=== PATIENT | female | born 1985 | race African-American/Black ===

== ENCOUNTER 2016-10-28 15:41 | Inpatient (IN) | payer OTHER ==
[~2016-10-28] VITALS: Ht 167.6 cm; Wt 108.0 kg
[~2016-10-28 15:41] MED LIST: DICLEGIS DR 101 EACH PO; TERAZOL 745 GM VG; VITAFOL-ONE CA1 EACH PO; ZOFRAN4 M2 PO
[2016-10-28 16:23] LABS: ABSOLUTE BASOPHIL COUNT 0 /CUMM (0.0-0.2); ABSOLUTE EOSINOPHIL COUNT 0.1 /CUMM (0.0-0.7); ABSOLUTE GRANULOCYTE CT 5.7 /CUMM (1.4-6.5); ABSOLUTE LYMPH COUNT 0.9 /CUMM (1.2-3.4); ABSOLUTE MONOCYTE COUNT 0.5 /CUMM (0.10-0.60); BASOPHIL % 0.4 % (0.0-2.0); EOSINOPHIL % 1.3 % (0-5); GRANULOCYTE % 79.3 % (42.2-75.2); HEMATOCRIT 34.9 % (37-47); MEAN CORPUSCULAR HGB 27.5 PG (27.0-31.0); MEAN CORPUSCULAR HGB CONC 32.7 G/DL (33.0-37.0); MEAN CORPUSCULAR VOLUME 84.1 FL (81.0-99.0); MEAN PLATELET VOLUME 7.7 FL (7.4-10.4); PLATELET COUNT 191 /CUMM (130-400); RBC DISTRIBUTION WIDTH 15.2 % (11.5-14.5); RED BLOOD CELL CT 4.15 /CUMM (4.20-5.40); WHITE BLOOD CELL COUNT 7.2 /CUMM (4.8-10.8)
[2016-12-22 06:08] LABS: ABSOLUTE BASOPHIL COUNT 0 /CUMM (0.0-0.2); ABSOLUTE EOSINOPHIL COUNT 0.2 /CUMM (0.0-0.7); ABSOLUTE GRANULOCYTE CT 5.3 /CUMM (1.4-6.5); ABSOLUTE LYMPH COUNT 1.5 /CUMM (1.2-3.4); ABSOLUTE MONOCYTE COUNT 0.7 /CUMM (0.10-0.60); BASOPHIL % 0.1 % (0.0-2.0); EOSINOPHIL % 2.4 % (0-5); HEMATOCRIT 36.5 % (37-47); MEAN CORPUSCULAR HGB 25.4 PG (27.0-31.0); MEAN CORPUSCULAR HGB CONC 31.8 G/DL (33.0-37.0); MEAN CORPUSCULAR VOLUME 79.7 FL (81.0-99.0); PLATELET COUNT 201 /CUMM (130-400); RBC DISTRIBUTION WIDTH 17.9 % (11.5-14.5); RED BLOOD CELL CT 4.58 /CUMM (4.20-5.40); WHITE BLOOD CELL COUNT 7.7 /CUMM (4.8-10.8)
[2016-12-22 06:52] VITALS: BP 119/59
--- NOTE | 2016-12-22 07:18 | History & Physical ---
General Information and HPI MD Statement: I have seen and personally examined HARI GAYLE and documented this H&P. The patient is a 31 year old female at [40] weeks gestation who presented with a chief complaint of [LABOR PAINS]. Source of Information: patient, old records Exam Limitations: no limitations History of Present Illness: HAS BEEN HAVING LABOR PAINS FOR A FEW HOURS Allergies/Medications Allergies: Coded Allergies: No Known Allergies (05/20/16) Home Med list Doxylamine/Pyridoxine HCl (Diclegis Dr 10-10 MG Tablet) 1 EACH TABLET.DR 1 TAB PO PRN N/V (Reported) Ondansetron HCl (Zofran) 4 MG TABLET 1 TAB PO Q6-8P PRN NAUSEA Pnv#26/Iron Poly/FA/Dha (Vitafol-One Capsule) 1 EACH CAPSULE 1 CAP PO DAILY (Reported) Terconazole (Terazol 7) 45 GM CREAM.APPL 1 A VG QPM YEAST INFECTION (Reported ) Compliance With Home Meds: GOOD Past History systems auditor History : 4 Para: 3 Last Menstrual Period: Estimated Delivery Date: 12/20/2016 Past systems auditor History: none Past Pregnancies Past Pregnancies: 1 Date of Delivery: 11/08/2010 Gestational Age: 40 Length of Labor: 4 Weight: 8# Type of Delivery: vaginal Anesthesia: NONE Past Pregnancies: 2 Date of Delivery: 12/02/2018 Gestational Age: 39 Length of Labor: 5H Weight: 7# Type of Delivery: vaginal Anesthesia: NONE Past Pregnancies: 3 Date of Delivery: 04/14/2016 Gestational Age: 40 Length of Labor: 4H Weight: 2#12OZ Type of Delivery: vaginal Anesthesia: NONE Complications: NONE Medical History Neurological: NONE EENT: NONE Cardiovascular: NONE Respiratory: asthma Gastrointestinal: NONE Hepatic: NONE Renal: NONE Musculoskeletal: NONE Psychiatric: NONE Endocrine: NONE Blood Disorders: NONE Cancer(s): NONE Surgical History Pertinent Surgical History: non-contributory Past Family/Social History Psychosocial History Smoking Status: Never Smoked Review of Systems Review of Systems Constitutional: Reports: no symptoms. Denies: chills, fever. EENTM: Denies: blurred vision, double vision, visual changes. Cardiovascular: Denies: orthopena. Neurological/Psychological: Denies: anxiety, depressed. Exam & Diagnostic Data Last 24 Hrs of Vital Signs/I&O VSS Vital Signs Date Time Temp Pulse Resp B/P Pulse O2 O2 Flow FiO2 Ox Delivery Rate 12/22 0652 119/59 Intake & Output 12/22 0800 12/22 0000 12/21 1600 Intake Total Output Total Balance Patient 238 lb Weight Obstetric Exam Wgt Gained During : 58 Pelvimetry: ADEQUATE Dilation (cm): 9 Effacement (%): 90 Station: 0 Membranes: AROM Fluid: light meconium Fundal Height (cm): 40 Multiple Gestation? No Contractions: Q4MIN Patient for Induction? No Physical Exam General Appearance Alert, Oriented X3, Cooperative, Moderate Distress Skin No Rashes Cardiovascular Regular Rate Lungs Clear to Auscultation Abdomen Soft Labs Blood Type & Rh: o POS Antibody Screen: NEG Hct/Hgb & Platelets #1: 43/14.2/214 Hct/Hgb & Platelets #2: 37.5/11.5/204 Rubella: IMM VDRL #1: NR VDRL #2: NR HbsAg: NR HIV #1: NR HIV #2 NR 1 Hr P Group B Strep: POS Initial Ultrasound: 05/25/2016 10 WEEKS Anatomy Ultrasound: 07/27/2016 Genetic Testing: DECLINED Last 24 Hrs of Labs/Vikram: Laboratory Tests 12/22/16 0540: CBC w Diff NO MAN DIFF REQ, RBC 4.58, MCV 79.7 L, MCH 25.4 L, RDW 17.9 H, MPV 8.0, Gran % 69.0, Lymphocytes % 19.0 L, Monocytes % 9.5 H, Eosinophils % 2.4, Basophils % 0.1, Absolute Granulocytes 5.3, Absolute Lymphocytes 1.5, Absolute Monocytes 0.7 H, Absolute Eosinophils 0.2, Absolute Basophils 0, PUBS MCHC 31.8 L, Urine Color STRAW, Urine Clarity CLDY H, Urine pH 6.5, Ur Specific [place] 1.015, Urine Protein TRACE H, Urine Ketones NEG, Urine Nitrite NEG, Urine Bilirubin NEG, Urine Urobilinogen 0.2, Ur Leukocyte Esterase LARGE H, Ur Microscopic SEDIMENT EXAMINED, Urine RBC 10-15 H, Urine WBC 25-50 H, Ur Epithelial Cells MANY H, Urine Bacteria MANY H, Urine Mucus FEW, Urine Hemoglobin MOD H, Urine Glucose NEG Assessment/Plan Assessment/Plan: IUP @ TERM GBS POS PLAN ANTIBIOTICS As Ranked By This Provider Problem List: 1. Core Measures/Miscellaneous Venous Thromboembolism VTE Risk Factors: / VTE Contraindications: No Contraindications VTE Diagnosis: No Beta Janice Is Beta Janice a Home Med? No Antibiotics Is Patient on Antibiotics? No Attending MD Review Statement Attending Statement Attending MD Statement: examined this patient, discussed with family, discussed w/nursing
--- NOTE | 2016-12-22 10:06 | Labor & Delivery Summary ---
Delivery Summary Vaginal Delivery: Vaginal: Vertex spontaneous Placenta: Placenta: spontanteous, normal, 3 vessel Anesthesia: none Cord PH Value: N/A Baby's Weight: FEMALE 8#5oz Apgars - 1 Min: 9 Apgars - 5 Min: 9 Additional Comments: Precipitous delivery. Low segment atony PP - responded to manual extraction of clot in upper vagina, IV Pitocin, IM Methergine. Normal bleeding there after. EBL @ [address] Joseph did the delivery Sami Gardner MD
[2016-12-22] MEDS ORDERED: IBUPROFEN800 M1 PO (15:13)
[2016-12-23 08:21] LABS: ABSOLUTE BASOPHIL COUNT 0 /CUMM (0.0-0.2)
[2016-12-23 08:53] LABS: ABSOLUTE EOSINOPHIL COUNT 0.2 /CUMM (0.0-0.7); ABSOLUTE GRANULOCYTE CT 6.2 /CUMM (1.4-6.5); ABSOLUTE LYMPH COUNT 1.8 /CUMM (1.2-3.4); ABSOLUTE MONOCYTE COUNT 0.7 /CUMM (0.10-0.60); BASOPHIL % 0 % (0.0-2.0); EOSINOPHIL % 2.4 % (0-5); GRANULOCYTE % 69.6 % (42.2-75.2); MEAN CORPUSCULAR HGB 25.7 PG (27.0-31.0); MEAN CORPUSCULAR HGB CONC 31.9 G/DL (33.0-37.0); MEAN CORPUSCULAR VOLUME 80.5 FL (81.0-99.0); MEAN PLATELET VOLUME 8.2 FL (7.4-10.4); PLATELET COUNT 195 /CUMM (130-400); RBC DISTRIBUTION WIDTH 18.5 % (11.5-14.5); RED BLOOD CELL CT 3.91 /CUMM (4.20-5.40); WHITE BLOOD CELL COUNT 8.9 /CUMM (4.8-10.8)
[2016-12-23 08:59] LABS: HEMATOCRIT 31.5 % (37-47)
--- NOTE | 2016-12-23 09:58 | PN- OBGYN ---
Surgical Brief Attending Note Brief Attending Note: 31 year old para 4. s/p yesterday. PPD1. Doing well. Desires BTL. Wants to defer early discharge. She is ambulating, voiding, was tolerating pain and po until NPO for surgery. Appropriate lochia. +nursing. Hx reviewed. Denies PMhx, PsurgHx, regular meds or allergies. General: NAD FF@U ext: no calf tenderness , trace b/l pedal edema Vital Signs Date Time Temp Pulse Resp B/P Pulse O2 O2 Flow FiO2 Ox Delivery Rate 12/22 0652 119/59 Laboratory Tests 12/23/16 0730: CBC w Diff NO MAN DIFF REQ, RBC 3.91 L, MCV 80.5 L, MCH 25.7 L, RDW 18.5 H, MPV 8.2, Gran % 69.6, Lymphocytes % 20.7, Monocytes % 7.3, Eosinophils % 2.4, Basophils % 0 L, Absolute Granulocytes 6.2, Absolute Lymphocytes 1.8, Absolute Monocytes 0.7 H, Absolute Eosinophils 0.2, Absolute Basophils 0, PUBS MCHC 31.9 L Orders Procedure Date/time Status CBC WITHOUT DIFFERENTIAL 12/23 0600 Complete Regular Diet 12/22 B Active PATHOLOGY SPECIMEN 12/22 0707 Complete Pathway - chart 12/22 07 Active Vital Signs 12/22 0701 Active Activity/Ambulation 12/22 0701 Active TRANSFER ORDERS 12/22 0659 Complete Pathway - chart 12/22 0539 Active Admit to inpatient 12/22 0539 Active Patient Data 12/22 0539 Active Vital Signs 12/22 05 Complete OB: Monitoring 12/22 538 Complete Activity/Ambulation 12/22 05 Complete URINALYSIS 12/22 538 Complete CBC WITHOUT DIFFERENTIAL 12/22 538 Complete TYPE & SCREEN (NOT X-MATCH) 12/22 538 Complete Childbirth Center Pt Data 12/22 UNK Active VTE Mechanical Prophylaxis 12/22 UNK Active a/p PPD 1. Doing well. Plan PPBTL. r/b/a reviewed including risk of bleeding, infection, injury to other organs, need for additional procedures should complication occur, failure with increased risk of ectopic gestation. Questions answered and desires to proceed.
[2016-12-23] MEDS ORDERED: PERCOCET 5-3251 EACH PO (10:05)
--- NOTE | 2016-12-23 11:41 | Operative Report ---
Operative/Inv Procedure Report Surgery Date: 12/23/16 Name of Procedure: BILATERAL TUBAL LIGATION VIA MODIFIED LALA Pre-Operative Diagnosis: MULTIPARITY, DESIRES PERMANENT STERILITY Post-Operative Diagnosis: SAME Estimated Blood Loss: scant Surgeon/Matrix Supervisor: DELLA DONOVAN DO Anesthesia: general endotracheal tube IV Fluids: 1400ML Drains: NA Specimens: PORTIONS OF BILATERAL FALLOPIAN TUBES Complications: NONE Condition: GOOD Operative Indication: 31 YEAR OLD . S/P . PPD1 PRESENTS FOR PERMANENT STERILIZATION. S/P PRECIPITOUS THIS AM. PT COUNSELED ON R/B/A OF PROCEDURE INCLUDING ELECTIVE AND PERMANENT NATURE, RISK OF BLEEDING, INFECTION, INJURY TO OTHER ORGANS , NEED FOR ADDITIONAL PROCEDURES SHOULD COMPLICATION OCCUR, RISK OF FAILURE WITH INCREASED RISK OF ECTOPIC GESTATION SHOULD OCCUR. QUESTIONS ANSWERED AND DESIRES TO PROCEED. Operative/Procedure Note Note: PATAIENT TAKEN TO TO THE OPERATING ROOM WHERE ANESTHESIA OBTAINED WITHOUT DIFFICULTY. PT WAS PLACED IN THE DORSAL SUPINE POSITION. SHE WAS PREPPED AND DRAPED IN THE USUAL STERILE FASHION. INFRAUMBILICAL SKIN INCISION WAS MADE WITH THE SCALPEL. INCISION CARRIED DOWN TO THE FASCIA. FASCIA INCISED WITH THE SCALPEL. PERITONEUM IDENTIFIED AND ENTERED SHARPLY WITH METZENBAUM SCISSOR. USING S RETRACTORS FOR TRACTION UTERINE FUNDUS IDENTIFIED, THEN LEFT TUBE IDENTIFIED AND CARRIED OUT TO THE FIMBRIA. THE MID-ISTHMIC PORTION IDENTIFIED AND GRASPED WITH A RAJ. IT WAS DOUBLY TIED WITH O-PLAIN. KNUCKLE OF TUBE WAS EXCISED WITH METZENBAUM. GOOD HEMOSTASIS NOTED. PROCEDURE WAS THEN REPEATED ON THE RIGHT TUBE. GOOD HEMOSTASIS NOTED. TUBE REPLACED BACK INTO THE ABDOMEN. FASCIA REAPPROXIMATED WITH O-POLYSORB. SKIN CLOSED WITH 4-0 BIOSYN. PT TOLERATED THE PROCEDURE WELL. GOOD HEMOSTASIS WAS NOTED . PT TAKEN TO THE RECOVERY AREA IN GOOD CONDITION. Findings: NORMAL BILATERAL FALLOPIAN TUBES Discharge Disposition: PACU CC: DELLA DONOVAN DO
--- NOTE | 2016-12-24 13:58 | PN- Post Delivery/GYN ---
Subjective Subjective: Ready for discharge. Happy she had her PP BTL Review of Systems: Neg for cardiac, Pulmonary GI, GYU complaints Objective Last 24 Hrs of Vital Signs/I&O Afebrile VSS Physical Exam General Appearance Alert, Oriented X3, Cooperative, No Acute Distress Skin No Significant Lesion Cardiovascular Regular Rate Lungs Normal Air Movement Abdomen Normal Bowel Sounds, Soft, No Tenderness, No Hepatospenomegaly, Umbilical Incision- clean dry intact Uterus firm nontender 3 FB below umbilicus Neurological Normal Gait, Normal Speech Extremities No Tenderness/Swelling Reproductive (FEMALE) Normal female genitalia, Avge lochia Current Medications: Current Medications Sig/Jm Start time Last Medication Dose Route Stop Time Status Admin Acetaminophen 650 MG Q4P PRN 12/22 0700 DCD PO Hydroxyzine HCl 50 MG AT BEDTIME NEED.. 12/22 0600 DCD PO Ibuprofen 800 MG .STK-MED ONE 12/23 2327 DC PO 12/23 2328 Ibuprofen 800 MG .STK-MED ONE 12/23 2114 DC PO 12/23 2115 Ibuprofen 800 MG .STK-MED ONE 12/23 1542 DC PO 12/23 1543 Ibuprofen 800 MG Q6P PRN 12/22 0700 DCD 12/24 PO 0804 Oxycodone/ 1 TAB Q3P PRN 12/22 0700 DCD Acetaminophen PO Last 24 Hrs of Labs/Vikram: H/H .11/16 PPGD #1 Assessment/Plan Assessment/Plan Stabkle PPD #2/ POD #1 Ready for discharge instructions Rx percocet/ motrin f/up 2 and 6 wks PP Problem List: 1. 2. Term of female 3. Grand multipara 4. Encounter for female sterilization procedure 5. Precipitous delivery, delivered (current hospitalization) Attending MD Review Statement Attending Statement Attending MD Statement: examined this patient, discussed with family, reviewed EMR data (avail), discussed with nursing Attending Assessment/Plan: Sami Gardner MD
--- NOTE | 2017-01-03 15:41 | Discharge Summary ---
Visit Information Visit Dates Admission Date: 12/22/16 Discharge Date: 12/24/16 Hospital Course Course Attending Physician: DELLA DONOVAN DO Primary Care Physician: HAMZAH OSPINA,[facility] Course: 31 year old PRESENTED TO HOSPITAL WITH LABOR PAIN AND DELIVERED by Dr. Gardner on December 22, 2016. She delivered an 8pound 5 ounce female with scores of 9,9,9. She received a dose of methergine due to lower uterine segment atony. SHE HAD REQUESTED A PPBTL WHICH WAS PERFORMED ON PPD1. PROCEDURE WAS UNCOMPLICATED. / POSTOP COURSE WERE UNCOMPLICATED. SHE WAS DISCHARGED TO HOME ON PPD2 IN GOOD CONDITION. SHE WAS AMBULATING, VOIDING, TOLERATING PAIN AND PO. LOCHIA WAS APPROPRIATE. SHE WAS NURSING. DISCHARGE PRECAUTIONS WERE ADVISED. Complications: none Allergies: Coded Allergies: No Known Allergies (05/20/16) Significant Procedures: bilateral tubal ligation via modified [place] technique Pertinent Lab Results: Vital Signs Date Time Temp Pulse Resp B/P Pulse O2 O2 Flow FiO2 Ox Delivery Rate 12/22 0652 119/59 Disposition Summary Disposition Principal Diagnosis: term , delivered, Additional Diagnosis: multiparity, desires permanent sterilization. Discharge Disposition: home or self care Discharge Instructions General Discharge Information Code Status: Full Code Patient's Diet: regular Patient's Activity: pelvic rest, no heavy lifting x 6 weeks Follow-Up Instructions/Appts: call for severe or persistent pain, fever, hevy vaginal bleeding. Medications at Discharge Discharge Medications: Continue taking these medications: Pnv#26/Iron Poly/FA/Dha (Vitafol-One Capsule) 1 EACH CAPSULE 1 Capsule ORAL DAILY Qty = 30 Comments: PER PT Start taking the following new medications: Ibuprofen (Ibuprofen) 800 MG TABLET 800 Milligram ORAL EVERY SIX HOURS NEEDED as needed for UTERINE CRAMPING Qty = 60 Refills = 6 Comments: Last Taken:12/24/16 Time:0804 Oxycodone HCl/Acetaminophen (Percocet 5-325 MG Tablet) 5 MG-325 MG TABLET 1 Tablet ORAL EVERY 4-6 HOURS NEEDED as needed for postop Qty = 15 No Refills Copies To: DELLA DONOVAN DO
== END 2016-12-24 13:15 | DRG 541 ==
LOC: CBCO 15:41 → GNO 12-22 05:33
PROVIDERS: Obstetrics & Gynecology; ADMIT Obstetrics & Gynecology
PROC: 0UCG7ZZ Extirpation of Matter from Vagina, Via Natural or Artificial Opening (ICD-10-PCS; principal; 2016-12-22)
PROC: 10E0XZZ Delivery of Products of Conception, External Approach (ICD-10-PCS; principal; 2016-12-22)
PROC: 0UB70ZZ Excision of Bilateral Fallopian Tubes, Open Approach (ICD-10-PCS; 2016-12-23)
DX: O62.3 Precipitate labor (principal); O75.89 Other specified complications of labor and delivery; Z3A.40 40 weeks gestation of pregnancy; Z37.0 Single live birth; Z30.2 Encounter for sterilization; J45.909 Unspecified asthma, uncomplicated; O99.824 Streptococcus B carrier state complicating childbirth
CPT/HCPCS: GNOS; 36415; 59025; 81001; 88302; 88307; 96360; 96361; 96372; 96374; J0131; J1885; J2210; J2405; J7120